=== PATIENT | male | born 1980 | race Caucasian/White ===

== ENCOUNTER 2016-07-13 20:31 | Emergency (ER) | payer OTHER ==
[~2016-07-13 20:31] MED LIST: AMOXICILLIN500 M2 PO; benadryl/lido/maalox PO
--- NOTE | 2016-07-13 22:47 | ED THROAT/DENTAL COMPLAINT ---
History of Present Illness General Chief Complaint: Sore Throat, Dental Pain Stated Complaint: SORE THROAT Source: patient, old records Exam Limitations: no limitations Vital Signs & Intake/Output Vital Signs & Intake/Output Vital Signs Date Time Temp Pulse Resp B/P Pulse O2 O2 Flow FiO2 Ox Delivery Rate 07/13 2238 Room Air 07/13 2056 98.5 89 20 137/93 97 Room Air Allergies Coded Allergies: NO KNOWN ALLERGIES (07/13/16) Reconcile Medications No Known Home Medications Triage Note: TRIAGE: PT TO ER C/C SORE THROAT, HEAD PAIN AND RUNNY NOSE X FEW DAYS. HAD TONSILLECTOMY LAST YEAR. Triage Nurses Notes Reviewed? yes HPI: Patient presents with his stuffy nose, sinus congestion, sore throat and myalgias for the past 2 days. Subjective fevers and chills. No nausea or vomiting. No coughing. No headache. No blurry Vision. No difficulty swallowing. His throat is described as achy sensation. There is no radiation. It is constant. He rates it as a 6 out of 10. Past History Travel History Traveled to [place] past 21 day No Medical History Any Pertinent Medical History? 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 Tobacco Use: Never used ETOH Use: occasional use Illicit Drug Use: denies illicit drug use Family History Hx Contributory? No Review of Systems Review of Systems Constitutional: Reports: see HPI, chills, fever. EENTM: Reports: see HPI, nasal congestion, throat pain. Respiratory: Reports: no symptoms. Cardiovascular: Reports: no symptoms. GI: Reports: no symptoms. Genitourinary: Reports: no symptoms. Musculoskeletal: Reports: see HPI. Skin: Reports: no symptoms. Neurological/Psychological: Reports: no symptoms. Hematologic/Endocrine: Reports: no symptoms. Immunologic/Allergic: Reports: no symptoms. All Other Systems: Reviewed and Negative Physical Exam Physical Exam General Appearance: well developed/nourished, alert, awake, moderate distress Head: atraumatic, normal appearance Eyes: Bilateral: PERRL, EOMI. Ears: Bilateral: canal normal, Tympanic normal. Nose: normal inspection Mouth/Throat: normal mouth inspection, pharynx normal Neck: normal inspection, supple, lymphadenopathy (R), lymphadenopathy (L) Cardiovascular/Respiratory: normal breath sounds, normal peripheral pulses, regular rate/rhythm, no respiratory distress Back: normal inspection, normal range of motion Neurologic/Psych: no motor/sensory deficits, awake, alert, oriented x 3, normal gait, normal mood/affect Skin: intact, normal color, warm/dry Core Measures ACS in differential dx? No Severe Sepsis Present: No Septic Shock Present: No Progress Differential Diagnosis: strep pharyngitis, INFLUNZA Plan of Care: Orders Procedure Date/time Status RAPID VIRAL INFLUENZA A 07/13 2245 Complete THROAT CULTURE W/QUICK STREP 07/13 2245 Active Microbiology 07/13 230 NASOPHARYN: Influenza Virus A & B Rapid Smear - COMP Departure Departure Disposition: HOME OR SELF CARE Condition: Stable Clinical Impression Primary Impression: Sinusitis Referrals: DIANA MANZANO,SON (PCP/Family) Additional Instructions: DRINK PLENTY OF FLUIDS TAKE MUCINEX AND USE NASAL SPRAY DIRECTED IF NOT FEELING BETTER IN 48 HOURS, START ANTIBIOTIC PRESCRIBED Departure Forms: Customer Survey General Discharge Information Prescriptions: Current Visit Scripts Guaifenesin (Mucinex) 1 TAB PO BID #20 TAB Mometasone Furoate (Nasonex) 2 SPRAY NASB DAILY #1 INHAL Amoxicillin 1 TAB PO TID #30 TAB
[2016-07-13] MEDS ORDERED: MUCINEX600 M1 PO (23:38)
[2016-07-13] MEDS ORDERED: AMOXICILLIN500 M3 PO (23:38)
[2016-07-13] MEDS ORDERED: NASONEX17 GM NASB (23:38)
[2016-07-13 23:41] VITALS: BP 130/84
== END 2016-07-13 23:42 ==
LOC: ERH 20:31
DX: J32.9 Chronic sinusitis, unspecified (principal)
CPT/HCPCS: 87804; 87804-59

== ENCOUNTER 2016-09-25 22:57 | Emergency (ER) | payer OTHER ==
[~2016-09-25 22:57] MED LIST changes: +AMOXICILLIN500 M3 PO; +MUCINEX600 M1 PO; +NASONEX17 GM NASB
--- NOTE | 2016-09-26 01:07 | ED INFLUENZA/URI COMPLAINT ---
History of Present Illness General Chief Complaint: Upper Respiratory Sx/Fever Stated Complaint: SORE THROAT, BODY ACHES Source: patient Exam Limitations: no limitations Vital Signs & Intake/Output Vital Signs & Intake/Output Vital Signs Date Time Temp Pulse Resp B/P B/P Pulse O2 O2 Flow FiO2 Mean Ox Delivery Rate 09/26 0122 98.1 78 16 129/76 100 Room Air 09/25 2306 98.1 79 15 131/79 100 Room Air ED Intake and Output 09/26 0000 09/25 1200 Intake Total Output Total Balance Patient 215 lb Weight Weight Reported by Patient Measurement Method Allergies Coded Allergies: NO KNOWN ALLERGIES (07/13/16) Reconcile Medications Amoxicillin 500 MG TABLET 1 TAB PO TID SINUSITIS Amoxicillin/Potassium Clav (Augmentin 875-125 Tablet) 875 MG-125 MG TABLET 1 TAB PO BID bronchitis Guaifenesin (Mucinex) 600 MG TAB.ER.12H 1 TAB PO BID SINUSITIS Ibuprofen 600 MG TABLET 1 TAB PO TID PRN pain with food Mometasone Furoate (Nasonex) 50 MCG SPRAY.PUMP 2 SPRAY NASB DAILY SINUS CONGESTION Omeprazole Magnesium (Prilosec Otc) 20 MG TABLET.DR 1 TAB PO DAILY stomach burning Triage Note: PT TO ED FOR SORE THROAT X 1 DAY. Triage Nurses Notes Reviewed? yes HPI: 35 yo gentleman with sore throat, body aches x 2 days, now with cough with yellow sputum, non smoker. Past History Travel History Traveled to [place] past 21 day No Medical History Any Pertinent Medical History? 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 No Review of Systems Review of Systems Constitutional: Reports: no symptoms. EENTM: Reports: no symptoms. Respiratory: Reports: no symptoms. Cardiovascular: Reports: no symptoms. GI: Reports: no symptoms. Genitourinary: Reports: no symptoms. Musculoskeletal: Reports: no symptoms. Skin: Reports: no symptoms. Neurological/Psychological: Reports: no symptoms. Hematologic/Endocrine: Reports: no symptoms. Immunologic/Allergic: Reports: no symptoms. All Other Systems: Reviewed and Negative Physical Exam Physical Exam General Appearance: well developed/nourished, no apparent distress, alert, awake , comfortable Head: atraumatic, normal appearance Eyes: Bilateral: normal appearance, PERRL. Ears, Nose, Throat: normal ENT inspection, moist mucous membrane, hearing grossly normal Neck: normal inspection, supple Respiratory: normal breath sounds Cardiovascular: regular rate/rhythm, edema, gallop, JVD Gastrointestinal: normal bowel sounds, soft, non-tender Back: normal inspection, normal range of motion Extremities: normal inspection, normal capillary refill Neurologic/Psych: no motor/sensory deficits, awake, alert Core Measures Severe Sepsis Present: No Septic Shock Present: No Progress Differential Diagnosis: neutropenia, otitis, pharyngitis, sinusitis Plan of Care: Orders Procedure Date/time Status THROAT CULTURE W/QUICK STREP 09/25 7969 Active Diagnostic Imaging: Viewed by Me: Radiology Read. Discussed w/RAD: Radiology Read. Initial ED EKG: none Departure Departure Disposition: HOME OR SELF CARE Condition: Stable Clinical Impression Primary Impression: Bronchitis Referrals: SON ORTIZ MD (PCP/Family) Departure Forms: Customer Survey General Discharge Information Prescriptions: Current Visit Scripts Amoxicillin/Potassium Clav (Augmentin 875-125 Tablet) 1 TAB PO BID #14 TAB Omeprazole Magnesium (Prilosec Otc) 1 TAB PO DAILY #30 TAB Ibuprofen 1 TAB PO TID PRN pain #30 TAB with food Comments well appearing in ED... encouraged abx and follow up with pmd.
[2016-09-26] MEDS ORDERED: AUGMENTIN 875-1 EACH PO (01:08)
[2016-09-26] MEDS ORDERED: IBUPROFEN600 M1 PO (01:08)
[2016-09-26] MEDS ORDERED: PRILOSEC OTC20 M1 PO (01:08)
[2016-09-26 01:22] VITALS: BP 129/76
== END 2016-09-26 01:23 ==
LOC: ERH 22:57
DX: J40 Bronchitis, not specified as acute or chronic (principal)

== ENCOUNTER 2016-10-09 21:14 | Emergency (ER) | payer OTHER ==
[~2016-10-09] VITALS: Ht 177.8 cm; Wt 99.8 kg
[~2016-10-09 21:14] MED LIST changes: +AUGMENTIN 875-1 EACH PO; +IBUPROFEN600 M1 PO; +PRILOSEC OTC20 M1 PO
[2016-10-09 23:27] LABS: ABSOLUTE BASOPHIL COUNT 0 /CUMM (0.0-0.2); ABSOLUTE EOSINOPHIL COUNT 0.3 /CUMM (0.0-0.7); ABSOLUTE GRANULOCYTE CT 6.8 /CUMM (1.4-6.5); ABSOLUTE LYMPH COUNT 3.3 /CUMM (1.2-3.4); ABSOLUTE MONOCYTE COUNT 0.8 /CUMM (0.10-0.60); BASOPHIL % 0.3 % (0.0-2.0); EOSINOPHIL % 2.5 % (0-5); GRANULOCYTE % 60.6 % (42.2-75.2); HEMATOCRIT 42.7 % (42-52); MEAN CORPUSCULAR HGB 27.9 PG (27.0-31.0); MEAN CORPUSCULAR HGB CONC 34.1 G/DL (33.0-37.0); MEAN CORPUSCULAR VOLUME 81.7 FL (80.0-94.0); MEAN PLATELET VOLUME 8.7 FL (7.4-10.4); PLATELET COUNT 338 /CUMM (130-400); RBC DISTRIBUTION WIDTH 12.9 % (11.5-14.5); RED BLOOD CELL CT 5.23 /CUMM (4.70-6.10); WHITE BLOOD CELL COUNT 11.3 /CUMM (4.8-10.8)
--- NOTE | 2016-10-09 23:28 | ED THROAT/DENTAL COMPLAINT ---
History of Present Illness General Chief Complaint: General Adult Stated Complaint: SORE THROAT, LOWER BACK PAIN X 4 DAYS Source: patient Exam Limitations: no limitations Vital Signs & Intake/Output Vital Signs & Intake/Output Vital Signs Date Time Temp Pulse Resp B/P B/P Pulse O2 O2 Flow FiO2 Mean Ox Delivery Rate 10/10 0016 96.0 71 18 120/80 97 Room Air 10/09 2141 98.4 71 20 125/86 97 Room Air ED Intake and Output 10/10 0000 10/09 1200 Intake Total 0 Output Total Balance 0 Intake, Oral 0 Patient 220 lb Weight Weight Reported by Patient Measurement Method Allergies Coded Allergies: NO KNOWN ALLERGIES (UNKNOWN 10/09/16) Reconcile Medications Amoxicillin 875 MG TABLET 1 TAB PO BID SORE THROAT Amoxicillin 500 MG TABLET 1 TAB PO TID SINUSITIS Amoxicillin/Potassium Clav (Augmentin 875-125 Tablet) 875 MG-125 MG TABLET 1 TAB PO BID bronchitis Guaifenesin (Mucinex) 600 MG TAB.ER.12H 1 TAB PO BID SINUSITIS Ibuprofen 600 MG TABLET 1 TAB PO TID PRN pain with food Mometasone Furoate (Nasonex) 50 MCG SPRAY.PUMP 2 SPRAY NASB DAILY SINUS CONGESTION Omeprazole Magnesium (Prilosec Otc) 20 MG TABLET.DR 1 TAB PO DAILY stomach burning Prednisone (Deltasone) 20 MG TABLET 1 TAB PO TID SORE THROAT Triage Note: TRIAGE: PT TO ER C/C SORE THROAT X 5-6 DAYS, STATES "I GOT A LOT OF MUCUS". DENIES FEVERS. Triage Nurses Notes Reviewed? yes Onset: Abrupt Duration: day(s):, constant, continues in ED Timing: recent history Injury Environment: home Severity: moderate, severe No Modifying Factors: none HPI: 36-year-old male comes into the emergency room with complaints of sore throat. Patient reports some pain underneath his throat. Patient was seen here a few weeks ago for similar symptoms. He reports that he got better and the symptoms started recently over the past few days. Denies any fever chills vomiting. Patient reports some general body aches. Denies any fever. Denies any chills. Denies any other associated symptoms. (SHAILESH HOYT,FERNANDO) Past History Travel History Traveled to [place] past 21 day No Medical History Any Pertinent Medical History? 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 No (FERNANDO MAHMOOD) Review of Systems Review of Systems Constitutional: Reports: see HPI. EENTM: Reports: see HPI. Respiratory: Reports: no symptoms. Cardiovascular: Reports: no symptoms. GI: Reports: no symptoms. Genitourinary: Reports: no symptoms. Musculoskeletal: Reports: no symptoms. Skin: Reports: no symptoms. Neurological/Psychological: Reports: no symptoms. Hematologic/Endocrine: Reports: no symptoms. Immunologic/Allergic: Reports: no symptoms. All Other Systems: Reviewed and Negative (FERNANDO MAHMOOD) Physical Exam Physical Exam General Appearance: well developed/nourished, no apparent distress, alert Head: atraumatic, normal appearance Eyes: Bilateral: normal appearance, EOMI. Ears: Bilateral: canal normal. Nose: normal inspection Mouth/Throat: pharyngeal erythema Neck: normal inspection, lymphadenopathy (R), lymphadenopathy (L) Cardiovascular/Respiratory: regular rate/rhythm, no respiratory distress Back: normal inspection Neurologic/Psych: awake, alert, oriented x 3, normal gait, normal mood/affect Skin: intact, normal color Core Measures ACS in differential dx? No Severe Sepsis Present: No Septic Shock Present: No (FERNANDO MAHMOOD) Progress Differential Diagnosis: aspirated tooth, carious tooth, epiglottitis, Ludwigs angina, meningitis, odontogenic abscess, josé miguel-tonsillar abscess, pharyngeal for. body, stomatitis/gingivitis, strep pharyngitis, tooth fracture Plan of Care: Orders Procedure Date/time Status MONOSPOT TEST 10/09 2254 Complete CBC WITHOUT DIFFERENTIAL 10/09 2254 Complete THROAT CULTURE W/QUICK STREP 10/09 2146 Active Laboratory Tests 10/09/16 2313: CBC w Diff NO MAN DIFF REQ, RBC 5.23, MCV 81.7, MCH 27.9, RDW 12.9, MPV 8.7, Gran % 60.6, Lymphocytes % 29.4, Monocytes % 7.2, Eosinophils % 2.5, Basophils % 0.3, Absolute Granulocytes 6.8 H, Absolute Lymphocytes 3.3, Absolute Monocytes 0.8 H, Absolute Eosinophils 0.3, Absolute Basophils 0, PUBS MCHC 34.1, Infectious [place] Titer NEGATIVE Departure Departure Disposition: HOME OR SELF CARE Condition: Stable Clinical Impression Primary Impression: Pharyngitis Referrals: SON ORTIZ MD (PCP/Family) Additional Instructions: Take amoxicillin and prednisone as prescribed. Follow-up with your primary care doctor. Follow-up with ear nose and throat doctor. Return if any concerns worsening symptoms. Please go over all results of today's visit with your primary care doctor. Contact your primary care doctor to let them know you were here in the emergency room. There may be nonspecific findings which may not be related to your visit today here in the emergency room but may require further evaluation and chronic monitoring by your primary care doctor. If you had a laceration today the chance of foreign body always remains. You should follow-up with your primary care doctor for recheck in 3-5 days for a wound check. If you had an x-ray done there is a chance that a fracture could have been missed on initial read and you should follow-up with your primary care doctor for repeat x-rays if symptoms persist. If your blood pressure was elevated here in the emergency room please have rechecked by her primary care doctor within the next 48 hours by your primary care doctor. If you were prescribed a narcotic here in the emergency room or any type of controlled substances you're not allowed to drive while taking this medication or operate any type of heavy machinery. Narcotics can make you feel lightheaded dizziness nausea and can cause constipation. You may need to pickle pumper a stool softener. Thank you for choosing [facility] emergency room. Please return to the emergency room immediately if you have any other concerns worsening of symptoms. Departure Forms: Customer Survey General Discharge Information Prescriptions: Current Visit Scripts Prednisone (Deltasone) 1 TAB PO TID #15 MG Amoxicillin 1 TAB PO BID #14 TAB Comments Patient clinically looks well. Nontoxic-appearing. In no apparent distress. Symptoms are likely consistent with viral pharyngitis. Patient can follow-up with his primary care doctor for further evaluation and possible ear nose and throat follow-up as needed. Return to emergency room immediately if any other concerns worsening symptoms. Clinically looks well. No evidence of peritonsillar abscess. (SHAILESH HOYT,FERNANDO) PA/LEAD JAVA PROGRAMMER Co-Sign Statement Statement: ED Attending supervision documentation- [] I saw and evaluated the patient. I have also reviewed all the pertinent lab results and diagnostic results. I agree with the findings and the plan of care as documented in the PA's/LEAD JAVA PROGRAMMER's documentation. [x] I have reviewed the ED Record and agree with the PA's/LEAD JAVA PROGRAMMER's documentation. [] Additions or exceptions (if any) to the PAs/LEAD JAVA PROGRAMMER's note and plan are summarized below: [] (KASIA MANZANO,FILEMON Zavala)
[2016-10-10] MEDS ORDERED: AMOXICILLIN875 M1 PO (00:09)
[2016-10-10] MEDS ORDERED: DELTASONE20 MG PO (00:09)
[2016-10-10 00:16] VITALS: BP 120/80
== END 2016-10-10 00:26 ==
LOC: ERH 21:14
PROVIDERS: Physician Assistant Medical
DX: J02.9 Acute pharyngitis, unspecified (principal); M54.5 Low back pain